=== PATIENT | female | born 1970 | race American Indian/Alaskan Native ===

== ENCOUNTER 2016-04-26 11:00 | Outpatient (CLI) | payer BC ==
[2016-04-26] MEDS ORDERED: DULCOLAX PR ONE (11:35)
--- NOTE | 2016-04-27 08:11 | Fluoroscopy Report ---
DEFAGRAM: HISTORY: Constipation. FINDINGS: No comparison. [employer] film of the abdomen demonstrates mild fecal retention. There are multiple calcified fibroids in the pelvis. There is no evidence for rectal mass or ulceration. No bowel obstruction. Lateral cine images were obtained during defecation. There is no evidence for prolapse or enterocele. There is suggestion of a small rectocele which completely empties. IMPRESSION: Small rectocele.
== END 2016-04-26 11:01 | disposition home or self-care (01) ==
LOC: FLUORO 11:00
PROVIDERS: ATTEND Internal Medicine Gastroenterology
DX: D36.7 Benign neoplasm of other specified sites (principal); K31.84 Gastroparesis; N81.6 Rectocele
CPT/HCPCS: 74270; Q9963